=== PATIENT | male | born 1980 | race Caucasian/White ===

== ENCOUNTER 2017-12-13 03:22 | Emergency (ER) | payer OTHER, SELFPAY ==
[2017-12-13 03:23] VITALS: BP 159/107; PULSE 116; RESP 18; TEMP 36.8; O2SAT 96
[2017-12-13 03:24] VITALS: BP 159/107; PULSE 115; RESP 18; TEMP 36.8; O2SAT 98; BMI 24.3
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
[2017-12-13] MEDS: oxyCODONE 5 MG Tablet PO (03:44)
[2017-12-13] MEDS: Fluorescein 1 MG STRIP 1 STRIP EACH EYE (03:45)
[2017-12-13] MEDS: Tetracaine 0.5% Ophthalmic Bottle 1 DRP EACH EYE (03:45)
[2017-12-13] MEDS: Atropine Sulfate 1% 2 ml Bottle 2 DRP EACH EYE (03:46)
[2017-12-13] MEDS: Erythromycin Base 1 OPTH.TUBE 1 APPLIC EACH EYE (04:03)
[2017-12-13 04:10] VITALS: PULSE 110; RESP 15; O2SAT 94
--- NOTE | 2017-12-13 05:24 | ED.RN ---
visual acuity cancelled per dr. jerome verbal order at 0430.
== END 2017-12-13 05:16 | disposition home or self-care (01) ==
LOC: ED 03:58
PROVIDERS: Emergency Provider Emergency Medicine; Family Provider Internal Medicine; PCP Internal Medicine
DX: H16.9 Unspecified keratitis (principal); H57.13 Ocular pain, bilateral
CPT/HCPCS: 99283

== ENCOUNTER 2018-08-06 11:30 | Outpatient (RCR) | payer BC, SELFPAY ==
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
--- NOTE | 2018-08-06 11:52 | HP.PTDCSUM ---
HP - PT D/C Summary It has been my pleasure to treat STEPHEN HURLEY under orders from Corina Lowe DO, for the diagnosis of Neck and Shoulder Pain for a total of 10 visit(s). Discharge Date: Please see the following information for a summary of their discharge status. - Subjective Subjective: Still has a little bit of pain in his neck every once in awhile- when he is slouching and driving. Started seeing a chiro a few weeks ago. Sees MD on Saturday- hopes to go back to work. - Pain Shoulder Pain Intensity (Out of 10): 2 - Overall Improvement % Improvement: 70 - Objective Objective/Function: Posture: FH, RS-increased kyphosis- when given verbal and tacile cueing patient can acheive proper posture and does maintain in hard back chair- more challenged to maintain without back support. Gait: no deviation- good trunk rotation and arm swing. Palpation: increased trigger points throughout medial border of the scapula ROM: Wrist/Elbow: WNL, Shoulder: WNL in all planes Cervical: WFL in all planes. Strength: Cervical Isometrics: 4+/5, Shoulder: 5/5 throughout, Scap s/s: fair with mild winging bilateral. Elbow: Flexion/Extn: 5/5, Wrist: 5/5 - Goals Goal 1:: Patient will be I with HEP and progression Goal Progress: Goal Met Goal 2:: Patient will maintain proper posture t/o tx session to demo increased scap s/s. Goal Progress: Progressing Goal 3:: Patient will report 0/10 pain for 1 week Goal Progress: Progressing Goal 4:: Patient will demo 4+/5 strength in all deficit areas Goal Progress: Goal Met - Plan Plan: Discharge to I HEP- pt reports to continue with chiro and see MD Saturday - D/C Information If there are questions or concerns regarding this patient's physical therapy, please feel free to call me at [phone]. Thank you for the referral of this patient. Sincerely, Grace Marcano DPT
== END 2018-08-06 19:00 | disposition home or self-care (01) ==
LOC: PT 11:30
PROVIDERS: Family Provider Internal Medicine; PCP Internal Medicine; Referring Provider Internal Medicine; Visit Provider Internal Medicine
DX: M79.9 Soft tissue disorder, unspecified (principal); M62.838 Other muscle spasm; V89.2XXD Person injured in unspecified motor-vehicle accident, traffic, subsequent encounter
CPT/HCPCS: 97110; 97161; 97164

== ENCOUNTER 2021-09-08 19:58 | Emergency (ER) | payer BC, SELFPAY ==
[2021-09-08 19:58] VITALS: BP 172/119; PULSE 96; RESP 18; TEMP 37.1; O2SAT 97; BMI 28.3
[2021-09-08 20:32] VITALS: BP 172/104
--- NOTE | 2021-09-08 21:02 | EDS_ITS ---
HPI History of Present Illness HPI Narrative: Right thumb laceration Chief Complaint: Laceration Informant: patient Occured/Mechanism Mechanism/Context: Yes injury Onset/Context/Timing Onset: Today and Hours Context: Sudden Onset Timing: Continuous Current Severity: Mild Maximum Severity: Mild Associated Symptoms Associated Symptoms: Negative for Parasthesia, Weakness or Loss of Funtion Narrative Narrative: 41-year-old male was chopping wood and lacerated the right thumb. He is left- hand dominant. His tetanus is up-to-date. Tetanus Immunization: 5-10 years Prior similar symptoms: Yes Recent Illness/Hospitalization: No PFSH PFSH Medical History Depression Home Medications cephalexin 500 mg capsule 500 mg PO Q8H 5 days #15 caps 09/08/21 [Rx Last Taken Unknown] magnesium 30 mg tablet 30 mg PO DAILY 09/08/21 [History Last Taken Unknown] omeprazole magnesium 20 mg tablet,delayed release (Prilosec OTC) 20 mg PO DAILY 09/08/21 [History Last Taken Unknown] sertraline 50 mg tablet 50 tab PO DAILY 09/08/21 [History Last Taken Unknown] Allergy/AdvReac Type Severity Reaction Status Date / Time No Known Allergies Allergy Verified 09/08/21 19:59 Surgical History H/O hernia repair Social History Smoking Status: Current every day smoker tobacco type: cigarettes ROS ROS ED ROS Narrative Denies recent illness. Review of Systems ROS Unobtainable: Denies due to encephalopathy Constitutional Constitutional ED: Denies chills Eyes Eyes: Denies blurry vision ENT ENT ED: Denies ear pain Cardiovascular Cardiovascular: Denies chest pain Respiratory/Chest Respiratory/Chest: Denies cough Gastrointestinal Gastrointestinal: Denies abdominal pain Genitourinary Genitourinary ED: Denies dysuria Musculoskeletal Musculoskeletal: Denies back pain Integumentary Denies abscess Neurologic Neurologic: Denies headache(s) Psychiatric Psychiatric: Denies anxiety Endocrine Endocrinology: Denies cold intolerance Hematologic/Lymphatic Hematologic/Lymphatic: Denies easy bleeding Allergic/Immunologic Allergic/Immunologic ED: Denies mouth swelling EXAM Physical Exam Narrative Exam Narrative: 41-year-old male no acute distress vital signs stable afebrile. Exam normal except right thumb ulnar side has about a 1 inch laceration. He has full flexion-extension. Normal touch sensation cap refill. Only oozing of blood. No pulsatile bleeding. No bony deformity. Thumb is neurovascularly intact. HEENT, neck, heart, lung, abdominal exams are unremarkable. Const Vital Signs: 09/08/21 19:58 09/08/21 20:32 Temperature 98.7 F Temperature Source Temporal Pulse Rate 96 Respiratory Rate 18 Blood Pressure 172/119 H 172/104 H Blood Pressure Mean 136 126 Pulse Ox 97 Oxygen Delivery Method Room Air Positive well nourished and well developed; Negative for obese, cachectic, contractures or unkempt General Appearance ED: well developed; Negative for unkempt, cachectic or contractures Nutritional Appearance: Negative for cachectic or obese HEENT Reports moist mucous membranes normocephalic and atraumatic; Negative for trauma or tenderness Eyes PERRL and EOMs intact bilaterally Neck full ROM and supple General: Negative for tenderness Lymph Lymphatic: Negative for other Chest Wall inspection of chest normal Resp normal respiratory effort and clear to auscultation bilaterally Effort and Inspection: Negative for pain with movement Auscultation: Negative for rales, rhonchi or wheezes Cardio regular rate, regular rhythm, S1 normal heart sound, S2 normal heart sound and no murmurs Rate: Negative for bradycardia or tachycardic Rhythm: Negative for abnormal rhythm GI non-tender, non-distended and no masses Inspection: Negative for abdominal distention Auscultation: normoactive bowel sounds Palpation: soft; Negative for tender or guarding Bladder / Kidney Exam: No other Back/Spine no CVA tenderness General Back: Negative for CVA tenderness Cervical Spine: Negative for cervical spine tenderness Thoracic Spine / Upper Back: Negative for thoracic spinal tenderness Lumbar Spine / Lower Back: Negative for lumbar spinal tenderness Extremity normal to inspection and full ROM Extremity Narrative: Laceration right thumb on the ulnar side. General Extremety ED: Negative for edema General Extremity: Negative for edema Neuro oriented x3, moves all extremities, no focal motor deficits and no sensory deficits noted Sensorium / Orientation: alert, oriented to person, oriented to place and oriented to time; Negative for orientation impaired, lethargic or stuporous Motor Exam: strength 5/5 throughout Psych mental status grossly normal Appearance: Negative for unkempt Attitude: No agitated Mood & Affect: Negative for depressed, anxious, tearful or other Skin General Skin Exam: Negative for petechiae Lesions: no lesions Rashes: no rashes Trauma: laceration; Negative for no lacerations or abrasions MDM MDM MDM Narrative Medical decision making narrative: 41-year-old male laceration right thumb on the ulnar side. Tetanus is up-to-date per the patient. This wound will need to be cleaned, explored locally anesthetized and suture repaired. Repeat exam he is doing well. Nurses will clean and dress the wound. Be placed on Keflex 5 mg 3 times a day for 5 days to try to prevent infection. Procedures Lacerations Right thumb laceration: Length: 1.18 in Depth: Sub Q Shape: Linear Prep: Shure-Clens Laceration repair: Irrigated, Lidocaine, Local and Skin sutures Number of Sutures/Jennifer: 5 Suture Information: Ethilon, Simple and 4-0 Comment: Right thumb laceration. Anesthetized with lidocaine. Cleaned with Shur-Clens. Washed and irrigated with saline. Explored. Involve the skin and subcu tissue. No bony or tendon involvement. No signs of any digital artery injury. No pulsatile bleeding. Closed using 5 simple interrupted 4-0 Ethilon sutures. Proper hemostasis wound closure obtained. Patient tolerated procedure well. He is instructed on wound care and suture removal in 10 days. Discharge Plan Triage Chief Complaint: Laceration ED Provider: Brayan Levine Dx/Rx/DC Orders Clinical Impression: Laceration of right thumb Instructions: ED Laceration, Hand: All Closures Prescriptions: New cephalexin 500 mg capsule 500 mg PO Q8H 5 Days Qty: 15 0RF No Action sertraline 50 mg tablet 50 tab PO DAILY Label Comments: take 1 tablet by mouth once daily magnesium 30 mg Tablet 30 mg PO DAILY omeprazole magnesium [Prilosec OTC] 20 mg Tablet,Delayed Release (Dr/Ec) 20 mg PO DAILY Primary Care Provider: Corina Lowe Referrals: Corina Lowe DO [Primary Care Provider] - 10 Day for suture removal Activity Restrictions/Additional Instructions: Ice and elevate right thumb. Motrin and Tylenol for pain. Stitches out in 10 days. If our dressing stays dry and clean you can leave it on for 4 to 5 days. Then change it daily and clean gently with soap and water peroxide and water. Apply antibiotic ointment daily after you start changing the dressing. Watch for any signs of infection such as pus, red streaks or fever of seen return. Antibiotic Keflex 1 pill 3 times a day for 5 days to try to prevent any infection. Disposition Disposition: Home, Self Care
[2021-09-08] MEDS: Lidocaine 1% (20 ml mdv) 20 ML Vial 10 ML INFILT (22:30)
[2021-09-08 22:49] VITALS: BP 170/112; RESP 16
--- NOTE | 2021-09-08 22:50 | ED.RN ---
REVIEWED D/C INSTRUCTIONS, FOLLOW UP CARE, PRESCRIPTION, AND S/S THAT WOULD WARRANT A RETURN TO THE ED WITH PT. PT VERBALIZED AN UNDERSTANDING AND DENIES FURTHER QUESTIONS FOR THIS RN. PT SKIN P/W/D, RESP EVEN AND UNLABORED, PT A&O X 3, NO DISTRESS NOTED. PT AMBULATED OUT OF ED, GAIT STEADY.
== END 2021-09-08 22:51 | disposition home or self-care (01) ==
PROVIDERS: Emergency Provider Emergency Medicine; PCP Internal Medicine; Visit Provider Emergency Medicine
DX: S61.011A Laceration without foreign body of right thumb without damage to nail, initial encounter (principal); F17.210 Nicotine dependence, cigarettes, uncomplicated; F32.A Depression, unspecified; W26.8XXA Contact with other sharp object(s), not elsewhere classified, initial encounter; Z79.899 Other long term (current) drug therapy
CPT/HCPCS: 12001; 99284